=== PATIENT | female | born 1990 | race Caucasian/White ===

== ENCOUNTER 2021-10-11 07:59 | Outpatient (CLI) | payer OTHER ==
[2021-10-11 21:55] LABS: SARS-CoV-2 PCR by NAA Not Detected (NotDetected)
== END 2021-10-11 08:00 | disposition home or self-care (01) ==
LOC: CSHLAB 07:59
PROVIDERS: ATTEND Advanced Practice Midwife
DX: Z20.822 Contact with and (suspected) exposure to COVID-19 (principal)
CPT/HCPCS: U0003; U0005

== ENCOUNTER 2021-10-14 19:00 | Inpatient (IN) | payer BC, OTHER ==
[~2021-10-14 19:00] MED LIST: Bupivacaine 0.25% HCL 30 ML VIAL ONE
[2021-10-14] MEDS ORDERED: HYDROcodone/Acetaminophen 5/325 mg Tablet PO PRN ×2 (19:29)
[2021-10-14] MEDS ORDERED: Ibuprofen 800 MG TAB PO PRN (19:29)
[2021-10-14] MEDS ORDERED: Butorphanol Tartrate 1 MG/ML VIAL SLOW IVP PRN (19:29)
[2021-10-14] MEDS ORDERED: NS w/ Oxytocin 30 units 500 ML IV SCH ×2 (19:29)
[2021-10-14] MEDS ORDERED: Promethazine HCl 25 MG/ML VIAL IM PRN (19:29)
[2021-10-14] MEDS ORDERED: Methylergonovine 0.2 MG/ML VIAL IM PRN (19:29)
[2021-10-14] MEDS ORDERED: hydrALAZINE 20 MG/ML VIAL SLOW IVP PRN (19:29)
[2021-10-14] MEDS ORDERED: Lidocaine 1% (PF) 30 ML VIAL SC PRN (19:29)
[2021-10-14] MEDS ORDERED: Diphenoxylate HCl/Atropine Tablet PO PRN ×2 (19:29)
[2021-10-14] MEDS ORDERED: Carboprost 250 MCG/ML AMP IM PRN (19:29)
[2021-10-14] MEDS ORDERED: Ondansetron PF 4 MG/2 ML Vial IVP PRN (19:29)
[2021-10-14] MEDS ORDERED: Misoprostol 200 MCG TAB PR PRN (19:29)
[2021-10-14] MEDS: Lactated Ringer's 1,000 ML IV SCH (19:40)
[2021-10-14 19:52] VITALS: BMI 30.9
[2021-10-14 20:00] LABS: Mean Corpuscular HGB CONC 31.4 g/dL (32.0-36.0); Mean Corpuscular Hemoglobin 28.1 pg (27.0-33.0); Mean Corpuscular Volume 89.5 fl (81.6-98.3); Mean Platelet Volume 9.3 fl (7.4-10.4); Platelet Count 317 10x3/uL (150-450); RBC Distribution Width 13.6 % (11.5-14.5); Red Blood Cell (RBC) Count 3.91 10x6/uL (3.90-5.03); White Blood Cell (WBC) Count 12.6 10x3/uL (3.5-10.5)
[2021-10-14] MEDS: Misoprostol 100 MCG TAB VAG SCH (20:21)
[2021-10-14 20:31] LABS: Hep B Surf Ag Non-Reactive S/CO (NonReactive)
[2021-10-14 20:32] LABS: Syphilis Antibody Nonreactive (Nonreactive); Syphilis Antibody Index 0.07 S/CO (<1.00 Non-Reactive)
[2021-10-14 20:35] LABS: HBSAg Index 0.21 S/CO (0-0.99)
[2021-10-15] MEDS: Misoprostol 100 MCG TAB VAG SCH ×6 (00:44→17:08)
[2021-10-15] MEDS: Lactated Ringer's 1,000 ML IV SCH ×2 (00:51→17:09)
[2021-10-15] MEDS ORDERED: Oxytocin 10 UNITS/ML VIAL ONE (02:35)
[2021-10-15] MEDS ORDERED: Lidocaine 1% (PF) 30 ML VIAL ONE (02:35)
[2021-10-15] MEDS ORDERED: Penicillin G Potassium 5 MILL.UNITS VIAL ONE (02:40)
[2021-10-15] MEDS ORDERED: Carboprost 250 MCG/ML AMP ONE (02:42)
[2021-10-15] MEDS ORDERED: Misoprostol 200 MCG TAB ONE (02:42)
[2021-10-15] MEDS ORDERED: Fentanyl 2 mcg/Bup 0.1% Cadd 100 ML ONE (07:08)
[2021-10-15] MEDS ORDERED: Ondansetron PF 4 MG/2 ML Vial IVP PRN ×2 (07:34→17:10)
[2021-10-15] MEDS ORDERED: Acetaminophen 325 MG TAB PO PRN (07:34)
[2021-10-15] MEDS ORDERED: Hydrocerin (Eucerin) Cream 120 gm Jar TOP PRN (07:34)
[2021-10-15] MEDS ORDERED: Naloxone HCl 0.4 mg/ml Vial IVP PRN ×2 (07:34)
[2021-10-15] MEDS ORDERED: diphenhydrAMINE 50 MG/ML VIAL IVP PRN (07:34)
[2021-10-15] MEDS ORDERED: ePHEDrine Sulfate 50 MG/10 ML VIAL SLOW IVP PRN (07:34)
[2021-10-15] MEDS ORDERED: Promethazine HCl 25 MG/ML VIAL IM PRN (07:34)
[2021-10-15] MEDS ORDERED: Lactated Ringer's 500 ML IV PRN (07:34)
[2021-10-15] MEDS ORDERED: Fentanyl 2 mcg/Bupivacaine 0.1% Cassette 100 ML EPIDURAL SCH (07:45)
[2021-10-15] MEDS ORDERED: Communication Order-Pharmacy FS SCH (07:45)
[2021-10-15] MEDS ORDERED: hydrALAZINE 20 MG/ML VIAL SLOW IVP PRN (17:10)
[2021-10-15] MEDS ORDERED: HYDROcodone/Acetaminophen 5/325 mg Tablet PO PRN (17:10)
[2021-10-15] MEDS ORDERED: Lanolin Ointment 7 GM TUBE TOP PRN (17:10)
[2021-10-15] MEDS ORDERED: Boostrix 0.5 ML (Tdap) VIAL IM ONE (17:10)
[2021-10-15] MEDS ORDERED: Bisacodyl 10 MG SUPP PR PRN (17:10)
[2021-10-15] MEDS ORDERED: Benzocaine-Menthol 82.5 ML CAN TOP PRN (17:10)
[2021-10-15] MEDS ORDERED: Misoprostol 200 MCG TAB VAG PRN (17:10)
[2021-10-15] MEDS ORDERED: Methylergonovine 0.2 MG/ML VIAL IM PRN (17:10)
[2021-10-15] MEDS ORDERED: Milk Of Magnesia 30 ML UDCUP PO PRN (17:10)
[2021-10-15] MEDS ORDERED: NS w/ Oxytocin 30 units 500 ML IV SCH (17:10)
[2021-10-15] MEDS: Docusate 100 MG CAP PO SCH (20:54)
[2021-10-15] MEDS: Ibuprofen 800 MG TAB PO SCH (20:55)
[2021-10-15] MEDS: HYDROcodone/Acetaminophen 5/325 mg Tablet PO PRN (22:09)
[2021-10-16] MEDS: Ibuprofen 800 MG TAB PO SCH ×2 (05:06→13:26)
[2021-10-16] MEDS ORDERED: Ferrous Sulfate 325 MG TAB PO SCH (08:00)
[2021-10-16] MEDS: Docusate 100 MG CAP PO SCH (08:10)
[2021-10-16] MEDS ORDERED: Prenatal Vitamin 1 TAB PO SCH (09:00)
[2021-10-16] MEDS: HYDROcodone/Acetaminophen 5/325 mg Tablet PO PRN (12:13)
[2021-10-16 12:16] VITALS: BP 112/73; TEMP 98.2
== END 2021-10-16 15:55 | disposition home or self-care (01) | DRG 807 ==
LOC: CSHLD 19:16 → CSHPP 10-15 16:30
PROVIDERS: ADMIT Obstetrics & Gynecology; ATTEND Obstetrics & Gynecology
PROC: 10E0XZZ Delivery of Products of Conception, External Approach (ICD-10-PCS; principal; 2021-10-15)
PROC: 3E033VJ Introduction of Other Hormone into Peripheral Vein, Percutaneous Approach (ICD-10-PCS; 2021-10-15)
PROC: 3E0P7VZ Introduction of Hormone into Female Reproductive, Via Natural or Artificial Opening (ICD-10-PCS; 2021-10-15)
DX: O80 Encounter for full-term uncomplicated delivery (principal); Z37.0 Single live birth; Z3A.39 39 weeks gestation of pregnancy; Z20.822 Contact with and (suspected) exposure to COVID-19
CPT/HCPCS: 36415; 85027; 86780; 86850; 86900; 86901; 87340; J0595; J2590; J7120; S0020; U0003; U0005